=== PATIENT | female | born 1945 | race African-American/Black ===

== ENCOUNTER 2022-02-06 18:53 | Observation (INO) ==
[2022-02-06 21:20] LABS: ABS Eosinophils 0.1 10^3/ul (0-0.6); ABS Lymphocytes 1.7 10^3/ul (1.0-4.8); ABS Monocytes 0.3 10^3/ul (0-0.8); ABS Neutrophils 2.7 10^3/ul (1.5-7.7); Eosinophil % 2.4 %; Hematocrit 33 % (35-47); Hemoglobin 10.8 g/dL (12.0-16.0); Lymphocyte % 34.6 %; Mean Corpuscular HGB Conc 32 g/dL (31-36); Mean Corpuscular Hemoglobin 27 pg (27-31); Mean Corpuscular Volume 84 fL (80-97); Nucleated Red Blood Cells % 0.1; Platelet Count 254 10^3/uL (150-450); Red Blood Count 3.96 10^6 /uL (3.70-4.87); Red Cell Distribution Width 13 % (10-15); White Blood Count 4.9 10^3/uL (3.5-10.8)
[2022-02-06 21:25] LABS: INR 0.94 (0.89-1.11)
[2022-02-06 22:06] LABS: Urine Appearance Cloudy; Urine Bilirubin Negative (Negative); Urine Blood Negative (Negative); Urine Color Yellow; Urine Glucose Negative (Negative); Urine Ketones Negative (Negative); Urine Nitrite Negative (Negative); Urine Protein Negative (Negative); Urine Urobilinogen Negative (Negative)
[2022-02-06 22:08] LABS: Urine Bacteria 1+ (Absent); Urine Red Blood Cell Trace(0-2/hpf) (Absent); Urine Squamous Epithelial Cell Present (Absent); Urine White Blood Cell 3+(>20/hpf) (Absent)
[2022-02-06 22:17] LABS: Albumin 3.6 g/dL (3.2-5.2); Calcium 8.8 mg/dL (8.6-10.3); Potassium 4.2 mmol/L (3.5-5.0); Total Bilirubin 0.3 mg/dL (0.2-1.0)
[2022-02-06 22:23] LABS: Albumin/Globulin Ratio 1.4 (1-3); C Reactive Protein 16.77 mg/L (<8.01); Globulin 2.5 g/dL (2-4); Total Protein 6.1 g/dL (6.4-8.9); eGFR CKD-EPI 52.3 (>60)
[2022-02-06] MEDS ORDERED: Iodixanol (CONTRAST) 320 MG/ML 100 ML SDV IV ONE (22:26)
[2022-02-07] MEDS ORDERED: Ondansetron 4 mg VIAL 2 MG/ML 2 ml VIAL IV PRN (02:13)
[2022-02-07] MEDS ORDERED: Dextrose 50% Syringe 50 ml 25 GM/50 ML SYRINGE IV PUSH PRN (02:19)
[2022-02-07] MEDS ORDERED: Senna TAB 8.6 mg TAB PO PRN (02:21)
[2022-02-07 03:15] LABS: Folate 10.03 ng/mL (5.90-24.80)
[2022-02-07 07:55] LABS: Hematocrit 31 % (35-47); Hemoglobin 10.3 g/dL (12.0-16.0); Mean Corpuscular HGB Conc 33 g/dL (31-36); Mean Corpuscular Hemoglobin 28 pg (27-31); Mean Corpuscular Volume 84 fL (80-97); Mean Platelet Volume 8.7 fL (7.4-10.4); Platelet Count 239 10^3/uL (150-450); Red Blood Count 3.71 10^6 /uL (3.70-4.87); Red Cell Distribution Width 13 % (10-15); White Blood Count 5.1 10^3/uL (3.5-10.8)
[2022-02-07 08:40] LABS: Calcium 8.7 mg/dL (8.6-10.3); HDL Cholesterol 78.6 mg/dL; Potassium 3.9 mmol/L (3.5-5.0); eGFR CKD-EPI 51.8 (>60)
[2022-02-07] MEDS: DULoxetine DR 60 mg CAP PO SCH (08:42)
[2022-02-07] MEDS: Cholecalciferol (VIT D3) 1,000 unit TAB PO SCH (08:42)
[2022-02-07] MEDS: Cholecalciferol (VIT D3) 400 units TAB PO SCH (08:44)
[2022-02-07] MEDS: Aspirin EC 81 mg TAB.EC (enteric coated) PO SCH (08:44)
[2022-02-07] MEDS: Calcium Carb (TUMS) 500 mg CHEW TAB PO SCH (08:46)
[2022-02-07] MEDS: Enoxaparin 40 MG/0.4 ML SYR SUBCUT SCH (08:47)
[2022-02-07] MEDS ORDERED: Perflutren Lipid Microsphere 3 ML VIAL ONE (14:57)
[2022-02-08] MEDS: Enoxaparin 40 MG/0.4 ML SYR SUBCUT SCH (05:49)
[2022-02-08 07:02] LABS: ABS Eosinophils 0.1 10^3/ul (0-0.6); ABS Monocytes 0.4 10^3/ul (0-0.8); ABS Neutrophils 1.9 10^3/ul (1.5-7.7); Eosinophil % 2.8 %; Hematocrit 30 % (35-47); Hemoglobin 10.1 g/dL (12.0-16.0); Lymphocyte % 45.3 %; Mean Corpuscular HGB Conc 33 g/dL (31-36); Mean Corpuscular Hemoglobin 28 pg (27-31); Mean Corpuscular Volume 83 fL (80-97); Mean Platelet Volume 9.1 fL (7.4-10.4); Nucleated Red Blood Cells % 0.1; Platelet Count 223 10^3/uL (150-450); Red Blood Count 3.63 10^6 /uL (3.70-4.87); Red Cell Distribution Width 13 % (10-15); White Blood Count 4.4 10^3/uL (3.5-10.8)
[2022-02-08] MEDS: Cholecalciferol (VIT D3) 1,000 unit TAB PO SCH (08:39)
[2022-02-08] MEDS: Cholecalciferol (VIT D3) 400 units TAB PO SCH (08:40)
[2022-02-08] MEDS: Aspirin EC 81 mg TAB.EC (enteric coated) PO SCH (08:40)
[2022-02-08] MEDS: DULoxetine DR 60 mg CAP PO SCH (08:40)
[2022-02-08] MEDS: Calcium Carb (TUMS) 500 mg CHEW TAB PO SCH (08:41)
[2022-02-08 09:27] LABS: Calcium 8.7 mg/dL (8.6-10.3); Potassium 3.9 mmol/L (3.5-5.0); eGFR CKD-EPI 45.7 (>60)
[2022-02-08 09:35] LABS: Ferritin 124.9 ng/mL (11-307)
[2022-02-08] MEDS ORDERED: Lactated Ringers 1000 ml BAG 500 ML IV ONE (10:05)
[2022-02-08 12:39] VITALS: BP 155/81
[2022-02-08 13:23] LABS: Calcium 8.9 mg/dL (8.6-10.3); Magnesium 1.8 mg/dL (1.9-2.7); Potassium 4.3 mmol/L (3.5-5.0); eGFR CKD-EPI 44.8 (>60)
== END 2022-02-08 15:00 | disposition home or self-care (01) ==
LOC: ED 18:53 → EDHOLD 18:53 → SUATTDRO 02-07 01:22 → MEDTELE 02-07 05:21
PROVIDERS: ADMIT Internal Medicine; ATTEND Internal Medicine